=== PATIENT | male | born 2000 | race Caucasian/White ===

== ENCOUNTER 2020-05-06 20:13 | Emergency (ER) | payer OTHER ==
[2020-05-06 22:01] VITALS: BP 118/76
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
== END 2020-05-06 22:01 | disposition home or self-care (01) ==
LOC: ER 20:13
DX: Z04.1 Encounter for examination and observation following transport accident (principal)
CPT/HCPCS: 99282